=== PATIENT | female | born 1955 | race Asian ===

== ENCOUNTER 2016-07-22 18:25 | Emergency (ER) | payer BC ==
[~2016-07-22 18:25] MED LIST: ASPIRIN81 MG PO; DETROL LA PO; FOSAMAX70 MG PO; TRIAMTERENE-HC1 EAC1 PO
== END 2016-07-22 18:45 | disposition home or self-care (01) ==
LOC: SED 18:25
DX: K61.1 Rectal abscess (principal)
CPT/HCPCS: 46040; 99283